=== PATIENT | female | born 1970 | race Caucasian/White ===

== ENCOUNTER → 2020-12-29 | Outpatient (CLI) | payer BC ==
[~2020-12-29] MED LIST: IOPAMIDOL 370 MG/ML 200 ML INFUS..BTL INJ ONE; SODIUM CHLORIDE 0.9% 50ML 50 ML ONE
== END ==
LOC: CT 15:16
PROVIDERS: ATTEND Internal Medicine Gastroenterology
DX: R10.10 Upper abdominal pain, unspecified (principal); R10.30 Lower abdominal pain, unspecified
CPT/HCPCS: 74177; Q9967

== ENCOUNTER 2023-05-03 10:29 | Emergency (ER) | payer BC ==
[~2023-05-03] VITALS: Ht 157.5 cm; Wt 60.8 kg
[2023-05-03] MEDS ORDERED: POTASSIUM CHLORIDE 20 MEQ TAB CR PO STA (10:54)
[2023-05-03] MEDS ORDERED: ESOMEPRAZOLE MA40 MG PO (10:54)
[2023-05-03] MEDS ORDERED: KLOR-CON 1010 MEQ PO (10:54)
[2023-05-03] MEDS ORDERED: LEVOTHYROXINE50 MCG PO (10:54)
[2023-05-03] MEDS ORDERED: CEFDINIR300 MG PO (11:22)
[2023-05-03 11:26] VITALS: BP 106/66; PULSE 78; RESP 16; O2SAT 100
== END 2023-05-03 12:00 | disposition home or self-care (01) ==
LOC: ER 10:44
DX: E87.6 Hypokalemia (principal); R55 Syncope and collapse; J45.909 Unspecified asthma, uncomplicated; E03.9 Hypothyroidism, unspecified; Z98.84 Bariatric surgery status
CPT/HCPCS: 93005; 99283